=== PATIENT | male | born 1985 | race Caucasian/White ===

== ENCOUNTER 2022-08-23 09:34 | Outpatient (CLI) | payer SELFPAY | END 2022-08-23 09:35 | disposition home or self-care (01) | PROVIDERS: Visit Provider Registered Nurse | DX: Z31.69 Encounter for other general counseling and advice on procreation (principal); Z31.41 Encounter for fertility testing | CPT/HCPCS: 89310; 89398 ==

== ENCOUNTER 2024-03-17 11:28 | Inpatient (IN) | payer BC, SELFPAY ==
[2024-03-17] VITALS (16 sets, daily range): BP systolic 110–153; BP diastolic 80–100; PULSE 67–82; RESP 16; TEMP 36.8–37.6; O2SAT 98–100
--- NOTE | 2024-03-17 11:52 | ED_ITS ---
HPI - General Adult General Date Seen: 03/17/24 Chief complaint: Abdominal Pain Stated complaint: stomach pain Time Seen by Provider: 03/17/24 11:40 History of Present Illness HPI narrative: This is a 38-year-old generally healthy male referred to the ER this morning from clinic for evaluation of acute appendicitis. History from the patient his is that he has been sick since Saturday. He has had a generalized abdominal pain, intermittent fevers that were low-grade, mild anorexia since yesterday. He has not had anything to eat since yesterday. This morning, while in clinic, he vomited once, but now feels better. He had a low- grade fever yesterday but no fever this morning. No clear trigger for his pain. Nothing makes it better or worse. It seems to be fairly generalized 1st but he received Toradol in clinic and now it is mostly in his right lower quadrant. He is otherwise healthy. No long-term medical conditions. He takes no medications. No allergies. Nonsmoker. History from the clinic is that he has had pain for 2 days. He had a white count of 17. He had a CT scan that showed acute appendicitis with severe findings but no evidence for rupture or free fluid or perforation. He is being sent directly from the radiology suite to the ER so that we can arrange surgical consultation. Related Data Home Medications Medication Instructions Recorded Confirmed fexofenadine 180 mg tablet 180 mg PO QDAY PRN 06/21/23 07/18/23 (Allergy Relief (fexofenadine)) cholecalciferol (vitamin D3) PO DAILY 03/17/24 03/17/24 Allergies Allergy/AdvReac Type Severity Reaction Status Date / Time No Known Drug Allergies Allergy Verified 03/17/24 10:08 [facility] Medical History (Updated 03/17/24 @ 11:52 by Arnoldo Shankar MD) Abdominal pain ?R10.9 - Unspecified abdominal pain (ICD-10) Surgical History (Updated 06/21/23 @ 14:21 by Wanda Gaston MD) Hx of LASIK ?Z98.890 - Other specified postprocedural states (ICD-10) Social History Little interest or pleasure in doing things: not at all Feeling down, depressed, or hopeless: not at all Exam Narrative: Exam Narrative: Constitutional: Appears well-developed and well-nourished. Alert. Conversant. Non toxic. HENT: Head: Atraumatic. Nose: Nose normal. Mouth/Throat: Oral mucosa is clear and moist. no trismus. Pharynx normal. Mallampati category 3. Tonsils symmetric. No tonsillar enlargement, erythema, or exudate. Eyes: Conjunctivae normal. EOM normal. Pupils equal, round, and reactive to light. No scleral icterus. Neck: Normal range of motion. Neck supple. No tracheal deviation present. Cardiovascular: Normal rate, regular rhythm. No gallop. No friction rub. No murmur heard. Symmetric radial artery pulses Pulmonary/Chest: Effort normal. No stridor. No respiratory distress. No wheezes. No rales. No rhonchi . No tenderness. Abdominal: Soft. Bowel sounds normal. No distension. No mass. Right lower quadrant> suprapubic tenderness. No rebound. No guarding. No CVA tenderness Musculoskeletal: RUE: Normal range of motion. No tenderness. No deformity LUE: Normal range of motion. No tenderness. No deformity RLE: Normal range of motion. No edema. No tenderness. No deformity LLE: Normal range of motion. No edema. No tenderness. No deformity Neurological: Alert and oriented to person, place, and time. Normal strength. CN II-VII intact. No sensory deficit. GCS eye subscore is 4. GCS verbal subscore is 5. GCS motor subscore is 6. Normal coordination Skin: Skin is warm and dry. No rash noted. No pallor. Normal capillary refill. Psychiatric: Normal mood. Normal affect. Const: Vital Signs, click to edit/add: Vital Signs - 24 hr 03/17/24 11:33 Temperature 98.2 F Pulse Rate [Pulse Oximeter] 82 Respiratory Rate 16 Blood Pressure [Le ft Upper Arm] 110/80 Pulse Oximetry 100 Oxygen Delivery Me thod Room Air Course Course ED Course: Discussed by phone with surgery, Dr. Monzon. She will come to the ER to evaluate this patient. Based on logistics he will likely have to wait until later this afternoon before appendectomy. She requests that we do maintenance IV fluids and IV antibiotics-ordered. I reviewed the patient's labs and CT findings from clinic. He does have a white count of 17. CBC otherwise fine. CMP is pending. I contacted the lab. Turns out that the analyzer machine for comprehensive metabolic profiles is inactive this morning therefore that analysis will be delayed. Discussed with the lab. I will order a basic metabolic profile which can be obtained quickly before the patient goes to the OR. They will cancel the CMP, since it will not be back in a clinically meaningful time frame. Awaiting BMP, Overall low suspicion for any renal disease. Vital Signs Vital signs: Initial Vital Signs Temperature 98.2 F 03/17/24 11:33 Temperature Source Temporal Artery Scan 03/17/24 11:33 Pulse Rate 82 03/17/24 11:33 Respiratory Rate 16 03/17/24 11:33 Blood Pressure 110/80 03/17/24 11:33 Blood Pressure Mean 90 03/17/24 11:33 Blood Pressure Position Sitting 03/17/24 11:33 Pulse Oximetry 100 03/17/24 11:33 Oxygen Delivery Method Room Air 03/17/24 11:33 Vital Signs Temperature 98.2 F 03/17/24 11:33 Pulse Rate 82 03/17/24 11:33 Respiratory Rate 16 03/17/24 11:33 Blood Pressure 110/80 03/17/24 11:33 Pulse Oximetry 100 03/17/24 11:33 Oxygen Delivery Method Room Air 03/17/24 11:33 Temperature 98.2 F 03/17/24 11:33 Pulse Rate 82 03/17/24 11:33 Respiratory Rate 16 03/17/24 11:33 Blood Pressure 110/80 03/17/24 11:33 Pulse Oximetry 100 03/17/24 11:33 Oxygen Delivery Method Room Air 03/17/24 11:33 Medical Decision Making [facility] Narrative Medical decision making narrative: The patient is referred from clinic with 2 days of abdominal/ right lower quadrant abdominal pain. Workup, including CT scan obtained through clinic, confirms appendicitis. There is no evidence of rupture or abscess at this time. Pain has been controlled with Toradol given in the clinic. Discussed with surgery who requests that we start IV fluids and antibiotics here in the ER. Parenteral antibiotics have been ordered in the Emergency Department. The case was discussed with the contract programmer surgeon and the patient will be going to the operating room later this afternoon. Discharge Plan Discharge Clinical Impression: Acute appendicitis Prescriptions: No Action fexofenadine [Allergy Relief (fexofenadine)] 180 mg tablet 180 mg PO QDAY PRN cholecalciferol (vitamin D3) PO DAILY Follow Up/Referrals: Wanda Gaston MD [Primary Care Provider] -
[2024-03-17 12:09] LABS: Blood Urea Nitrogen POC* 10 mg/dl (8-26); Carbon Dioxide Point of Care* 19 mmol/L (20-32); Chloride Point of Care* 97 mmol/L (98-109); Creatinine Point of Care* 0.9 mg/dl (0.6-1.3); Glucose IStat Point of Care 110 mg/dl (60-115); Potassium Point of Care* 4.1 mmol/L (3.5-4.9); Sodium Point of Care* 132 mmol/L (138-146)
[2024-03-17] MEDS: PIPERACILLIN/TAZOBACTAM 4.5 GM in 0.9 % SODIUM CHLORIDE Mini-bag 100 ML IVPB (12:09)
--- NOTE | 2024-03-17 12:53 | P.GSHP_ITS ---
History of Present Illness History of Present Illness Date Seen: 03/17/24 Chief complaint: stomach pain Narrative: Iker Washington is a 38 year old male who presented to urgent care with complaints of a stomach ache since Saturday. He states that he has had pain like this before, as a child. The pain was slightly different this time because it persisted and is now in the right lower quadrant. Does report some associated nausea and emesis. No change in bowel movements. He has never had abdominal surgery before. 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 Review of Systems Status of ROS: Reports: 10 or more systems reviewed and unremarkable except as noted in History and below [facility] Medical History (Updated 03/17/24 @ 11:52 by Arnoldo Shankar MD) Abdominal pain ?R10.9 - Unspecified abdominal pain (ICD-10) Surgical History (Updated 06/21/23 @ 14:21 by Wanda Gaston MD) Hx of LASIK ?Z98.890 - Other specified postprocedural states (ICD-10) Social History Smoking Status: Never smoker How often do you have a drink containing alcohol: 2-3 times a week How many standard drinks containing alcohol do you have on a typical day: 1 or 2 How often do you have six or more drinks on one occasion: Never AUDIT-C Alcohol total score: 3 Non-prescribed substance use: marijuana (any form) Little interest or pleasure in doing things: not at all Feeling down, depressed, or hopeless: not at all Meds Home Medications and Allergies Home Medications Medication Instructions Recorded Confirmed Type fexofenadine 180 mg tablet 180 mg PO QDAY PRN 06/21/23 07/18/23 History (Allergy Relief (fexofenadine)) cholecalciferol (vitamin D3) PO DAILY 03/17/24 03/17/24 History Allergies Allergy/AdvReac Type Severity Reaction Status Date / Time No Known Drug Allergies Allergy Verified 03/17/24 10:08 Exam Narrative: Exam Narrative: General: Alert and oriented, no acute distress Respiratory: Equal breath rise bilaterally, maintained on room air CV: Well perfused Abdomen: Tender to palpation right lower quadrant with some guarding and rebound. Soft. No previous surgical incisions. Const: Vital Signs, click to edit/add: Vital Signs - 24 hr 03/17/24 11:33 Temperature 98.2 F Pulse Rate [Pulse Oximeter] 82 Respiratory Rate 16 Blood Pressure [Le ft Upper Arm] 110/80 Pulse Oximetry 100 Oxygen Delivery Me thod Room Air Results Results Labs: Leukocytosis (17) Abdomen CT scan report/results: report reviewed and image reviewed Progress Note:A&P Assessment and plan (1) Acute appendicitis: Status: Acute Plan The patient presented with a history, exam and imaging findings consistent with acute appendicitis. I discussed the treatment options with the patient including non-surgical and s urgical options. I recommended laparoscopic appendectomy. The risks of surgery were reviewed with the patient including the risks of bleeding, post-operative wound or intra-abdominal infection, injury to abdominal structures and possible conversion to an open operation. We also discussed anesthetic complications including CO, stroke, respiratory failure and blood clots. The patient voiced an understanding of our conversation, had the opportunity to ask questions, agreed to accept the risks of surgery and asked that we proceed with surgery. -OR for laparoscopic appendectomy
[2024-03-17] MEDS: LACTATED RINGERS 1000 ML IV (12:59)
[2024-03-17] MEDS: BUPIVACAINE 0.25% 30 ML 20 ML INJECTION (13:28)
[2024-03-17] MEDS: LACTATED RINGERS 1000 ML 1,000 ML 100 ML IV (13:35)
--- NOTE | 2024-03-17 13:51 | SUR.OPER ---
PATIENT QUESTIONS ANSWERED SATISFACTORILY PREOPERATIVELY. PATIENT BROUGHT TO OR #3 PER CART. Patient positioned supine on OR #3 bed. The perioperative team supported arms bilaterally on arm boards. Final approval of positioning by surgeon.
--- NOTE | 2024-03-17 14:18 | W.ANESCHARGE ---
Anesthesia Charges Start Date/Time Anesthesia Start Date: 03/17/24 Anesthesia Start Time: 13:06 Stop Date/Time Anesthesia Stop Date: 03/17/24 Anesthesia Stop Time: 15:54 Summary Extremes of Age - Over 70 or under 1: MDA
--- NOTE | 2024-03-17 14:20 | SUR.OPER ---
, KHALIDA, UPDATED BY PHONE CALL @ 14:20 BY MILTON SINGH RN
--- NOTE | 2024-03-17 15:56 | P.ANES_ITS ---
Anesthesia Charges Start Date/Time Anesthesia Start Date: 03/17/24 Anesthesia Start Time: 13:06 Stop Date/Time Anesthesia Stop Date: 03/17/24 Anesthesia Stop Time: 15:54 Summary Emergency: [employer]
[2024-03-17] MEDS: HYDROmorphone 0.5 mg/0.5 ml inj IVP ×4 (16:58→23:24)
[2024-03-17] MEDS: PIPERACILLIN/TAZOBACTAM 3.375 GM in 0.9 % SODIUM CHLORIDE Mini-bag 100 ML IVPB (18:53)
[2024-03-17] MEDS: ACETAMINOPHEN 325 MG TABLET 650 MG PO (19:56)
[2024-03-18] VITALS (7 sets, daily range): BP systolic 107–122; BP diastolic 60–79; PULSE 55–80; RESP 16–18; TEMP 36.7–37.3; O2SAT 98–100
[2024-03-18] MEDS: HYDROCODONE-ACETAMIN 5-325 MG 1 TAB PO ×4 (00:07→19:04)
[2024-03-18] MEDS: PIPERACILLIN/TAZOBACTAM 3.375 GM in 0.9 % SODIUM CHLORIDE Mini-bag 100 ML IVPB ×5 (00:09→23:54)
[2024-03-18] MEDS: LACTATED RINGERS 1000 ML 1,000 ML 100 ML IV ×3 (00:19→22:11)
--- NOTE | 2024-03-18 00:19 | PC.NURSE ---
End of shift [id number] - Pt alert, oriented, cooperative. Up independently in room. Pt reported pain as 2/10, indicated tolerating pain with medications from JAN. PRASHANTH drain observed to be patent and draining. Tolerating RA, NPO diet. Family at bedside. Pt able to void during shift.
[2024-03-18] MEDS: HYDROmorphone 0.5 mg/0.5 ml inj IVP (04:39)
[2024-03-18 07:13] LABS: Basophils Percent Auto 0.1 % (0.0-3.0); Hematocrit 40.9 % (37.0-53.0); Hemoglobin* 13.6 gm/dL (13.5-17.5); Immature Granulocytes Pct Auto 0.2 %; Lymphocytes Percent Auto 6.2 % (20-44); Mean Corpuscular HGB Conc 33 gm/dL (32-36); Mean Corpuscular Hemoglobin 31 pg (26-34); Mean Corpuscular Volume 93 fL (80-100); Monocytes Percent Auto 10.4 % (0.0-11.0); Neutrophils Percent Auto 83.1 % (42.0-72.0); Platelet Count* 203 K/uL (140-440); RDW Coefficient of Variation % 12.3 % (11.5-15.5); Red Blood Count 4.38 m/uL (4.30-5.90); White Blood Count* 16.32 K/uL (4.50-11.00)
[2024-03-18 07:19] LABS: Slide Review Reflex No
--- NOTE | 2024-03-18 07:58 | PC.NURSE ---
Pt is alert and oriented x3. Afebrile. Pt reports 3/10 pain in abdomen, pain managed with PRN medications and cold pack. Pt has 2 laps sites that have scant dried blood on them and intact. Pt has one PRASHANTH drain that drained 50 ml overnight. Pt is Ind in room, tolerating a NPO diet with sips and chips allowed. Pt slept intermittently throughout night. ?
--- NOTE | 2024-03-18 10:26 | P.GSOP_ITS ---
Operative Note Date of procedure: 03/17/24 Pre-op diagnosis: Acute appendicitis Post-op diagnosis: Acute appendicitis, perforated with spillage of stool Type of Procedure: Laparoscopic appendectomy Indications: Patient is a 38-year-old male who presented to the emergency department with clinical history workup consistent for appendicitis. CT scan imaging was obtained and demonstrated a severe appendicitis with a significant amount of inflammation. Risks and benefits of operative intervention were discussed at length with the patient. Risks included but was not limited to: Bleeding, infection, risk of damage to surrounding structures, possible need for additional procedures, possible need to convert to an open operation and post operative complications such as pneumonia, pulmonary emboli or AR. All questions and concerns were addressed with the patient agreeing to proceed. Procedure Description: After discussing the risks and benefits of the procedure, the patient signed informed consent.? The operative site was marked and the patient was brought to the operating room and placed on the operating table in supine position.? Care was taken to pad the patient's pressure points.?? The patient was then intubated by anesthesia.?? The operative site was then prepped and draped in the usual sterile fashion.? A time-out was then performed. Entrance to the abdomen was obtained via a 5 mm optical trocar in the left upper quadrant. The abdomen was insufflated and briefly surveyed for any signs of injury. There were none. A 12 mm port was placed lateral to the umbilicus as well as a 5 mm port in the left lower quadrant under direct vision. The patient was then placed in Trendelenburg position with the right side up. Evidence of omental adhesions within the right lower quadrant to the anterior abdominal wall. These were taken down carefully with hook cautery. After removing these adhesions there was evidence of purulence within the right pericolic gutter. The cecum was edematous and inflamed. It was also densely adherent to the lateral abdominal wall. Blunt dissection was necessary to gently break up the inflammatory adhesions. Posterior to the cecum was an abscess cavity. When entered there was evidence of stool spillage and 2 large stool balls. Contami nation was identified as coming from an area of perforation near the base of the appendix. The body of the appendix was followed laterally and the tip identified, densely adherent to the lateral abdominal wall. This was dissected free with hook cautery and blunt dissection. The tip of the appendix was then able to be grasped and pulled into view. A mesenteric window was created between the base of the appendix and the mesoappendix. This was transected with a 45 mm Endo-DAYANA vascular load stapler. The staple line was examined for bleeding. A small pinpoint area of arterial bleeding was controlled with a single 5 mm clip. The perforation was visualized again at the base of the appendix. The cecum was further mobilized towards midline with hook cautery and blunt dissection. A 60 mm Endo-DAYANA purple load stapler was then used to transect just below the perforation at the base of the appendix, including a small portion of cecum. The staple line was inspected and appeared intact. The tissue involving the staple line and that portion of the cecum did appear inflamed, edematous and with some involved inflammatory rind. Due to the quality of the tissue the decision was made to oversew the staple line. This was performed laparoscopically with 2 interrupted Lembert stitches via the Endo Stitch. This allowed for complete coverage of the staple line. The appendix and 2 stool balls were then removed from the abdomen using an Endo-Catch bag. The area was irrigated with saline. The specimen was sent to pathology. Using the left lower quadrant 5 mm port a 15 [place]ian PRASHANTH drain was placed in the left lower quadrant. The 12 mm port site fascia was closed with 0 Vicryl via the Ian-Robert. The skin was then closed with absorbable subcuticular suture. Sterile dressings were then applied. Instrument sponge and needle counts were correct at the end of the case. The patient was then woken and transported to the PACU in stable condition. Findings: Acute appendicitis with perforation near the base and spillage of stool. Right lower quadrant 15 [place]uvian PRASHANTH drain placed Anesthesia: GETA Surgeon: Marlene Paulino MD Estimated blood loss (mL): 30 Specimen: Appendix Condition: stable Disposition: PACU
--- NOTE | 2024-03-18 10:38 | PM.GSPN ---
Subjective Subjective Date Seen: 03/18/24 Interval history: Patient is doing well this morning. His pain is currently controlled with the pain medicines. He has passed gas a few times. No bowel movement yet. He has been tolerating ice chips and water without difficulty. Denies any nausea or vomiting. No fevers overnight. No other concerns. Exam Narrative: Exam Narrative: General: Alert and oriented, no acute distress Respiratory: Equal breath rise bilaterally, maintained on room air CV: Well perfused Abdomen: Soft, tender to palpation over incision sites. Some tenderness with deep palpation right lower quadrant without guarding or rebound. Drain in place with minimal serosanguineous output. Const: Vital Signs, click to edit/add: Vital Signs - 24 hr 03/17/24 11:33 03/17/24 15:49 03/17/24 15:55 Temperature 98.2 F 99.2 F Pulse Rate 80 77 Pulse Rate [Pulse Oximeter] 82 Pulse Rate [Right Pulse Oximeter] Respiratory Rate 16 16 16 Blood Pressure 124/89 140/95 H Blood Pressure [Le ft Arm] Blood Pressure [Le ft Upper Arm] 110/80 Pulse Oximetry 100 100 99 Oxygen Delivery [facility] Room Air Room Air Room Air 03/17/24 16:00 03/17/24 16:05 03/17/24 16:10 Temperature Pulse Rate 78 76 74 Pulse Rate [Pulse Oximeter] Pulse Rate [Right Pulse Oximeter] Respiratory Rate 16 16 16 Blood Pressure 128/92 H 141/92 H 136/94 H Blood Pressure [Le ft Arm] Blood Pressure [Le ft Upper Arm] Pulse Oximetry 99 98 98 Oxygen Delivery [facility] Room Air Room Air Room Air 03/17/24 16:15 03/17/24 16:20 03/17/24 16:30 Temperature 98.4 F Pulse Rate 73 71 74 Pulse Rate [Pulse Oximeter] Pulse Rate [Right Pulse Oximeter] Respiratory Rate 16 16 16 Blood Pressure 137/93 H 149/98 H 144/94 H Blood Pressure [Le ft Arm] Blood Pressure [Le ft Upper Arm] Pulse Oximetry 99 99 99 Oxygen Delivery [facility] Room Air Room Air Room Air 03/17/24 16:45 03/17/24 17:00 03/17/24 17:15 Temperature 98.8 F Pulse Rate 67 72 70 Pulse Rate [Pulse Oximeter] Pulse Rate [Right Pulse Oximeter] Respiratory Rate 16 16 16 Blood Pressure 145/90 H 145/100 H 152/100 H Blood Pressure [Le ft Arm] Blood Pressure [Le ft Upper Arm] Pulse Oximetry 99 98 99 Oxygen Delivery Me thod Room Air Room Air Room Air 03/17/24 17:30 03/17/24 18:00 03/17/24 18:30 Temperature 99.2 F 99.6 F Pulse Rate 70 72 Pulse Rate [Pulse Oximeter] Pulse Rate [Right Pulse Oximeter] Respiratory Rate 16 16 16 Blood Pressure 152/100 H 153/97 H 146/87 H Blood Pressure [Le ft Arm] Blood Pressure [Le ft Upper Arm] Pulse Oximetry 98 99 99 Oxygen Delivery Ut thod Room Air Room Air Room Air 03/17/24 19:30 03/18/24 00:14 03/18/24 04:32 Temperature 99.6 F 98.2 F 98.0 F Pulse Rate 76 Pulse Rate [Pulse Oximeter] Pulse Rate [Right Pulse Oximeter] 68 60 Respiratory Rate 16 16 16 Blood Pressure 144/90 H Blood Pressure [Le ft Arm] 107/60 108/70 Blood Pressure [Le ft Upper Arm] Pulse Oximetry 98 98 Oxygen Delivery [facility] Room Air Room Air Room Air Labs/Imaging Labs Labs: WBC 16.3 this morning. Imaging Imaging: No new imaging. Progress Note:A&P Assessment and plan (1) Acute appendicitis: Status: Acute Plan Patient is postop day 1 laparoscopic appendectomy for acute appendicitis with perforation and contamination of stool. Vital signs stable and afebrile overnight. He does continue on IV antibiotics. Leukocytosis is still elevated but trending down (17.8--16.3). He has tolerated sips and ice chips without difficulty. Passing gas with no reported nausea. -clear liquids this morning. Will be slow but advancement of diet. Patient is at risk for postoperative ileus. -continue IV Zosyn -trend fever and WBC curve -encourage ambulation -SCDs and Lovenox for DVT prophylaxis, to start tonight.
--- NOTE | 2024-03-18 15:58 | PC.NURSE ---
End of Shift: Patient pleasant and cooperative, A&O. VSS, afebrile, SpO2 maintained above 90% on RA. Patient has been rating pain less than 5/10 on surgical site, managed with PRN medication, see MAR. Tolerating clear liquid diet, message to Dr. Paulino to advance to fulls per morning discussion.
[2024-03-18] MEDS: ENOXAPARIN 40 MG/0.4 ML INJ SUBCUT (19:03)
--- NOTE | 2024-03-18 22:46 | PC.NURSE ---
Patient alert and oriented x4. VSS. Patient advanced to a full liquid diet. Tolerated english yogurt well. Independent with walking and use of toilet. Patient walked the halls this afternoon. Pain level has been 3/10. States pain is from gas in abdomen and tender at incision site. at bedside this evening.
[2024-03-19] MEDS: HYDROCODONE-ACETAMIN 5-325 MG 1 TAB PO ×3 (01:17→12:43)
[2024-03-19 03:00] VITALS: BP 104/62; PULSE 56; RESP 16; TEMP 37.1; O2SAT 97
[2024-03-19] MEDS: PIPERACILLIN/TAZOBACTAM 3.375 GM in 0.9 % SODIUM CHLORIDE Mini-bag 100 ML IVPB ×2 (05:52→11:50)
[2024-03-19 06:42] LABS: Basophils Percent Auto 0.2 % (0.0-3.0); Eosinophils Percent Auto 0.2 % (0.0-7.0); Hematocrit 38.5 % (37.0-53.0); Hemoglobin* 12.8 gm/dL (13.5-17.5); Immature Granulocytes Pct Auto 0.2 %; Lymphocytes Percent Auto 18.4 % (20-44); Mean Corpuscular HGB Conc 33 gm/dL (32-36); Mean Corpuscular Hemoglobin 31 pg (26-34); Mean Corpuscular Volume 94 fL (80-100); Monocytes Percent Auto 10.7 % (0.0-11.0); Neutrophils Percent Auto 70.3 % (42.0-72.0); Platelet Count* 191 K/uL (140-440); RDW Coefficient of Variation % 12.3 % (11.5-15.5); Red Blood Count 4.09 m/uL (4.30-5.90); White Blood Count* 13.78 K/uL (4.50-11.00)
[2024-03-19 06:44] LABS: Slide Review Reflex No
[2024-03-19 07:00] VITALS: BP 109/71; PULSE 53; RESP 16; TEMP 36.9; O2SAT 98
--- NOTE | 2024-03-19 07:46 | PC.NURSE ---
23-07: pleasant and cooperative. rating pain 0-2/10 in abd, active ice on, see eMAR. pt experiences increased pain when stripping the PRASHANTH drain, does well with reminders to breathe. pt reports gas pains, pt walking halls indep. lap sites intact. 25mL Serosanguineous PRASHANTH output this shift.
[2024-03-19] MEDS: LACTATED RINGERS 1000 ML 1,000 ML 100 ML IV (10:02)
[2024-03-19 11:00] VITALS: BP 126/85; PULSE 48; RESP 16; TEMP 37.4; O2SAT 100
--- NOTE | 2024-03-19 13:41 | PM.DS1 ---
DS: Providers Provider Date Seen: 03/19/24 Date of admission: 03/17/24 17:11 Primary care physician: Wanda Gaston MD Admitting Clinician: Stanton Elmore MD Attending Physician on discharge: Marlene Paulino MD DS: Summary Hospital Course Hospital Course: Patient presented to the emergency department with evidence of severe appendicitis. Taken to the operating room for laparoscopic appendectomy. There was evidence intraoperatively of perforation with stool contamination in abscess cavity. A right lower quadrant drain was left in place. Patient did have slow advancement of diet. The drain was removed on postop day 2 with minimal serous drainage recorded. He continued on IV antibiotics while inpatient. At the time of discharge he had greater than 24 hours of being afebrile with down trending WBC ( 17-- 16--13). Patient was discharged to home once he was tolerating a regular diet, ambulating without difficulty and pain was well controlled. He was discharged with 8 days of Augmentin, to complete a 10 day course of antibiotics. Will plan for follow-up in 2 weeks. Time Spent with Patient Time attestation: Total time spent providing and/or coordinating discharge services: Exam Narrative: Exam Narrative: General: Alert and oriented, no acute distress respiratory: Equal breath rise bilaterally, maintained on room air CV: Well perfused abdomen: Soft, appropriately tender over incision sites. Steri-Strips in place clean/dry /intact Const: Vital Signs, click to edit/add: Vital Signs - 24 hr 03/18/24 15:00 03/18/24 15:00 03/18/24 19:00 Temperature 99.1 F 99.2 F Pulse Rate [Right Pulse Oximeter] 61 61 55 L Respiratory Rate 16 16 16 Blood Pressure [Le ft Arm] 113/74 122/77 Pulse Oximetry 100 99 Oxygen Delivery Me thod Room Air Room Air 03/18/24 23:00 03/18/24 23:00 03/19/24 03:00 Temperature 98.7 F 98.7 F Pulse Rate [Right Pulse Oximeter] 68 56 L Respiratory Rate 16 16 16 Blood Pressure [Le ft Arm] 107/60 104/62 Pulse Oximetry 99 97 Oxygen Delivery Me thod Room Air Room Air 03/19/24 07:00 03/19/24 07:00 03/19/24 11:00 Temperature 98.5 F 99.4 F Pulse Rate [Right Pulse Oximeter] 53 L 53 L 48 L Respiratory Rate 16 16 16 Blood Pressure [Le ft Arm] 109/71 126/85 Pulse Oximetry 98 100 Oxygen Delivery Me thod Room Air Room Air DS: Data Data Completed and Pending Labs on day of discharge: Labs from last 24 hours 03/19/24 06:18 WBC 13.78 H RBC 4.09 L Hgb 12.8 L Hct 38.5 MCV 94 MCH 31 MCHC 33 RDW Coeff of Sruthi 12.3 Plt Count 191 Neut % (Auto) 70.3 Lymph % (Auto) 18.4 L [place] % (Auto) 10.7 Eos % (Auto) 0.2 Baso % (Auto) 0.2 Neut # (Auto) 9.70 H Lymph # (Auto) 2.50 [place] # (Auto) 1.50 H Eos # (Auto) 0.00 Baso # (Auto) 0.00 Abs Immat Gran (auto) 0.00 Imm/Tot Granulo (auto) 0.2 Discharge Plan Discharge Disposition: Home, Self-Care Date of Admission: 03/17/24 17:11 Attending Provider on Discharge: Marlene Paulino Primary Care Provider: Wanda Gaston Condition: Improved Anticipated Discharge Date/Time: 03/19/24 18:00 Discharge Medications: New hydrocodone-acetaminophen 5-325 mg tablet 1 tab PO Q6H PRN (Reason: pain) Qty: 15 0RF amoxicillin-pot clavulanate 875-125 mg tablet 1 tab PO BID 8 Days Qty: 16 0RF senna 8.6 mg capsule 8.6 mg PO DAILY PRN (Reason: constipation) Qty: 90 0RF Continued fexofenadine [Allergy Relief (fexofenadine)] 180 mg tablet 180 mg PO DAILY PRN cholecalciferol (vitamin D3) 25 mcg (1,000 unit) capsule 25 mcg PO DAILY Discharge Orders: Discharge Order (Routine); Ordered 03/19/24 Ordered By: Marlene Paulino Patient Education: Post-Operative Instructions: Appendectomy Additional Instructions: You were prescribed a narcotic pain medication. In addition you may supplement with Tylenol and/or ibuprofen. Be sure to not exceed greater than 4 g of Tylenol in a 24 hour period. While on narcotic pain medicine please take stool softeners. A prescription of stool softeners has been sent to the pharmacy. Stop if having greater than 2 stools per day. You have Steri-Strips dressings in place, allowed these to fall off on in their own. Okay to shower. Do not soak in a bathtub per go swimming for 2 weeks. Follow-up with Dr. Paulino in 2-3 weeks. Please call if you are experiencing severe pain, nausea, vomiting, difficulty urinating, fever or not had a bowel movement in 4 days after surgery. Activity Level: No strenuous activity Activity Detail: Activity as tolerated. Avoid strenuous activity. No lifting greater than 20 lb for 2 weeks. Discharge Diet: Regular Follow Up Appointments: Wanda Gaston MD [Primary Care Provider] - Forms: [facility] Info Instructions
[2024-03-19 15:00] VITALS: PULSE 56; RESP 16; O2SAT 100
--- NOTE | 2024-03-19 15:29 | PC.NURSE ---
Nursing discharge note: Pt is A&O, afebrile and VSS on day of discharge. Pt does not have any pain while at rest but c/o pain at 2-4/10 with activity. Pt is independent in his room and does frequent walking in the hallway. Pt reports passing gas but no BM yet. Lap sites x3 intact with steri strips and minimal dried bloody drainage. PRASHANTH drain in LUQ intact with no drainage today- Dr. Paulino pulled drain this afternoon prior to D/C. Pt has been receiving PRN Clio for pain with adequate relief- last given @ 1245. PIV in right AC was discontinued, catheter intact. Pt tolerated diet advancement with no N/V or increase in abd pain. Pt discharged home accompanied by his via W/C at 1530. ?
== END 2024-03-19 15:31 | disposition home or self-care (01) | DRG 225 ==
LOC: ED 12:27 → OR 13:00 → MEDSURG 16:35 → OR 17:11 → MEDSURG 17:11
PROVIDERS: Surgery; Admitting Provider Surgery; Emergency Provider Emergency Medicine; PCP Family Medicine; Visit Provider Surgery
PROC: 0DTJ4ZZ Resection of Appendix, Percutaneous Endoscopic Approach (ICD-10-PCS; CPT 44970; principal; 2024-03-17 13:00)
DX: K35.33 Acute appendicitis with perforation, localized peritonitis, and gangrene, with abscess (principal); K66.0 Peritoneal adhesions (postprocedural) (postinfection)
CPT/HCPCS: 00840; 36415; 74177; 80048; 80053; 83690; 85025; 86140; 87086; 88304; 99100; 99140; 99283; 99284; 99285; A9270; J0330; J0665; J1100; J1170; J1630; J1650; J2250; J2405; J2543; J2704; J3010; J7120; Q9967

== ENCOUNTER 2024-03-25 10:52 | Outpatient (CLI) | payer BC, SELFPAY | END 2024-03-25 10:53 | disposition home or self-care (01) | LOC: NFLDREF 03-26 05:18 | PROVIDERS: PCP Family Medicine; Referring Provider Family Medicine; Visit Provider Surgery | DX: R10.9 Unspecified abdominal pain (principal); R11.0 Nausea; Z90.49 Acquired absence of other specified parts of digestive tract | CPT/HCPCS: 80048; 86140 ==

== ENCOUNTER 2024-03-25 15:02 | Observation (INO) | payer BC, SELFPAY ==
[2024-03-25 11:04] LABS: Basophils Percent Auto 0.3 % (0.0-3.0); Eosinophils Percent Auto 0.8 % (0.0-7.0); Hematocrit 44.6 % (37.0-53.0); Hemoglobin* 15.1 gm/dL (13.5-17.5); Lymphocytes Percent Auto 21.1 % (20-44); Mean Corpuscular HGB Conc 34 gm/dL (32-36); Mean Corpuscular Hemoglobin 31 pg (26-34); Mean Corpuscular Volume 91 fL (80-100); Monocytes Percent Auto 13.1 % (0.0-11.0); Neutrophils Percent Auto 64.7 % (42.0-72.0); Platelet Count* 406 K/uL (140-440); Red Blood Count 4.91 m/uL (4.30-5.90); White Blood Count* 12.07 K/uL (4.50-11.00)
[2024-03-25 11:05] LABS: Slide Review Reflex Yes
--- NOTE | 2024-03-25 13:00 | CT_ITS ---
Patient: MILVIA RADER Facility:?[facility] Patient ID:?[id number] Site Patient ID:?[id number]. Site :?1985 Study:?CT-Abdomen/Pelvis W/ 80CC [id number]/15/2024 12:57:12 PM Ordering Physician:Sigrid Lock Final Report: INDICATION: s/p appendectomy with abdominal symptoms. eval for abscess TECHNIQUE: CT abdomen and pelvis acquired with 80 cc Isovue 370 IV contrast. COMPARISON: 03/17/2024. FINDINGS: Lower chest: Unremarkable. Liver: Unremarkable. Normal in size and attenuation. No suspicious masses. Gallbladder and bile ducts: Unremarkable. No stones or inflammation. No biliary dilatation. Pancreas: Unremarkable. No mass or inflammation. Spleen: Unremarkable. Normal in size. No masses. Adrenal glands: Unremarkable. No nodules. Kidneys: Unremarkable. No suspicious masses, stones, or hydronephrosis. GI tract: Status post appendectomy. No bowel obstruction. Vasculature: Abdominal aorta is normal in caliber. Mesenteric arteries are patent. Lymph nodes: No lymphadenopathy. Peritoneum/Abdominal Wall: Bi lobulated fluid collections adjacent to the sutures at the base of the cecum at the site of appendectomy. The collections measures 5.2 x 2.3 cm in total diameters. Minimal subtle surrounding enhancement. No free air or significant free fluid. Foci of air dissecting along the left abdominal wall fascia, may be related to recent surgical intervention. Pelvis: Incomplete distension of the bladder. Bones: Unremarkable for age. IMPRESSION: 1. Bi-lobulated fluid collection at the site of appendectomy, adjacent to the sutures at the base of the cecum, concerning for developing abscess. Please note that all CT scans at this facility use dose modulation, iterative reconstruction, and/or weight-based dosing when appropriate to reduce radiation dose to as low as reasonably achievable. Dictated by Rocio Rivera MD @ 03/25/2024 1:34:57 PM Signed by:?Rocio Rivera MD @03/25/2024 1:34:57 PM (Electronic Signature)
[2024-03-25 13:02] LABS: Slide Review Acceptable Review (Acceptable)
[2024-03-25 14:00] LABS: Chloride* 98 mmol/L (96-114)
[2024-03-25 14:01] LABS: Potassium* 4.4 mmol/L (3.6-5.1); Sodium* 133 mmol/L (135-149)
[2024-03-25 14:03] LABS: Creatinine* 0.9 mg/dL (0.5-1.5); Estimated Glomerular Filt Rate 113 ml/min
[2024-03-25 14:04] LABS: Anion Gap 12 mEq/L (7-15); Blood Urea Nitrogen* 15 mg/dL (5-24); Carbon Dioxide* 23 mmol/L (20-32); Glucose* 96 mg/dL (60-115)
[2024-03-25 14:07] LABS: C Reactive Protein* 1.2 mg/dL (0.5-1.0)
--- NOTE | 2024-03-25 15:21 | P.GSHP_ITS ---
History of Present Illness History of Present Illness Date Seen: 03/25/24 Chief complaint: Z90.49 - Acquired absence of other specified parts Narrative: Milvia Washingtno is a 38 year old male who presented to General surgery Clinic today with nausea 1 week after undergoing laparoscopic appendectomy for perforated appendicitis. He had not had been having fevers, had not been taking pain medication, and had been having bowel movements, however, starting 2 days ago he began having nausea. This progressively got worse and he was also vomiting. For this reason he came in to be seen. He underwent laparoscopic appendectomy on 05/30/2024. He was found to have perforation with fecal contamination. He was kept in the hospital for 2 days on IV antibiotics and with a drain. The drain was pulled on postop day 2 and he was discharged home on oral antibiotics. Workup in clinic showed a white blood cell count of 12, mildly elevated CRP and a CT scan which showed a bilobed abscess. Discussion was had with Interventional Radiology you do not feel that there was a target for drainage. He was therefore admitted for IV antibiotics and antiemetics. [facility] Medical History (Updated 03/25/24 @ 16:17 by Ursula Lock MD) Abdominal pain ?R10.9 - Unspecified abdominal pain (ICD-10) Surgical History (Updated 03/25/24 @ 10:28 by Ursula Lock MD) Hx of LASIK ?Z98.890 - Other specified postprocedural states (ICD-10) Social History Smoking Status: Never smoker How often do you have a drink containing alcohol: 2-3 times a week How many standard drinks containing alcohol do you have on a typical day: 1 or 2 How often do you have six or more drinks on one occasion: Never AUDIT-C Alcohol total score: 3 Non-prescribed substance use: marijuana (any form) Little interest or pleasure in doing things: not at all Feeling down, depressed, or hopeless: not at all Meds Home Medications and Allergies Home Medications Medication Instructions Recorded Confirmed Type fexofenadine 180 mg tablet 180 mg PO DAILY PRN 06/21/23 03/25/24 History (Allergy Relief (fexofenadine)) cholecalciferol (vitamin D3) 25 25 mcg PO DAILY 03/18/24 03/25/24 History mcg (1,000 unit) capsule Allergies Allergy/AdvReac Type Severity Reaction Status Date / Time No Known Drug Allergies Allergy Verified 03/17/24 10:08 Exam Narrative: Exam Narrative: General: No acute distress CV: Regular rate and rhythm Respiratory: breathing non-labored on room air. Abdomen: Soft, patient does have guarding but denies pain. Incisions are clean and dry without erythema. Results Results Labs: White blood cell count in clinic was 12.9 which is down slightly from discharge. CRP was 1.2. Sodium mildly low at 133. Remainder of labs were normal. Abdomen CT scan report/results: report reviewed and image reviewed Additional studies: Patient: MILVIA [place] Facility:?[facility] Patient ID:?[id number] Site Patient ID:?[id number]. Site :?1985 Study:?CT-Abdomen/Pelvis W/ 80CC [id number]/15/2024 12:57:12 PM Ordering Physician:?Ursula Lock Final Report: INDICATION: s/p appendectomy with abdominal symptoms. eval for abscess TECHNIQUE: CT abdomen and pelvis acquired with 80 cc Isovue 370 IV contrast. COMPARISON: 03/17/2024. FINDINGS: Lower chest: Unremarkable. Liver: Unremarkable. Normal in size and attenuation. No suspicious masses. Gallbladder and bile ducts: Unremarkable. No stones or inflammation. No biliary dilatation. Pancreas: Unremarkable. No mass or inflammation. Spleen: Unremarkable. Normal in size. No masses. Adrenal glands: Unremarkable. No nodules. Kidneys: Unremarkable. No suspicious masses, stones, or hydronephrosis. GI tract: Status post appendectomy. No bowel obstruction. Vasculature: Abdominal aorta is normal in caliber. Mesenteric arteries are patent. Lymph nodes: No lymphadenopathy. Peritoneum/Abdominal Wall: Bi lobulated fluid collections adjacent to the sutures at the base of the cecum at the site of appendectomy. The collections measures 5.2 x 2.3 cm in total diameters. Minimal subtle surrounding enhancement. No free air or significant free fluid. Foci of air dissecting along the left abdominal wall fascia, may be related to recent surgical intervention. Pelvis: Incomplete distension of the bladder. Bones: Unremarkable for age. IMPRESSION: 1. Bi-lobulated fluid collection at the site of appendectomy, adjacent to the sutures at the base of the cecum, concerning for developing abscess. Progress Note:A&P Assessment and plan (1) Appendiceal mucinous cystadenoma: Status: Acute (2) S/P laparoscopic appendectomy: Status: Acute (3) Post-operative wound abscess: Status: Acute Plan The patient is a 38-year-old male who is 1 week status post laparoscopic appendectomy for perforated appendicitis. 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 He presented to clinic with nausea. He is found to have a small abscess. At this time iron does not feel that it is amenable to drainage. Admission to the hospital for IV antibiotics and antiemetics. Discussed with the patient and his that we will continue IV antibiotics likely as an outpatient as well. If he improves clinically and is able to eat and drink without nausea then he may discharge home as long as he is improving. He could come back for outpatient antibiotics depending on his hospital course. He may need to stay for a few days. Regarding his appendiceal neoplasm we will refer him to [facility] to see if there is any other intervention that is necessary. -clear liquid diet -Lovenox for DVT prophylaxis -or Zosyn for intra-abdominal abscess -repeat labs in a.m.
[2024-03-25 16:58] VITALS: BP 162/84; PULSE 56; RESP 16; O2SAT 100; BMI 22.7
[2024-03-25] MEDS: 0.9 % SODIUM CHLORIDE 1000 ml 1,000 ML 125 ML IV (16:59)
[2024-03-25] MEDS: PIPERACILLIN/TAZOBACTAM 3.375 GM in 0.9 % SODIUM CHLORIDE Mini-bag 100 ML IVPB ×2 (17:00→21:53)
[2024-03-25 17:04] VITALS: BP 162/84; PULSE 56; RESP 16; O2SAT 100
[2024-03-25] MEDS: ONDANSETRON 2 MG/ML inj IVP ×2 (17:12→22:03)
[2024-03-25 21:00] VITALS: BP 150/76; PULSE 62; RESP 16; O2SAT 100
[2024-03-25] MEDS: ENOXAPARIN 40 MG/0.4 ML INJ SUBCUT (21:53)
[2024-03-25 23:00] VITALS: BP 117/78; PULSE 56; RESP 16; TEMP 37.4; O2SAT 96
[2024-03-26] MEDS: ONDANSETRON 2 MG/ML inj IVP ×4 (01:58→18:22)
[2024-03-26] MEDS: 0.9 % SODIUM CHLORIDE 1000 ml 1,000 ML 125 ML IV ×3 (01:58→20:30)
[2024-03-26 03:00] VITALS: BP 119/78; PULSE 51; RESP 16; TEMP 37; O2SAT 99
[2024-03-26] MEDS: PIPERACILLIN/TAZOBACTAM 3.375 GM in 0.9 % SODIUM CHLORIDE Mini-bag 100 ML IVPB ×2 (04:21→09:57)
[2024-03-26 06:22] LABS: Basophils Absolute Auto 0.06 K/uL (0.00-0.30); Basophils Percent Auto 0.6 % (0.0-3.0); Eosinophils Absolute Auto 0.08 K/uL (0.00-0.50); Eosinophils Percent Auto 0.7 % (0.0-7.0); Hematocrit 40.8 % (37.0-53.0); Hemoglobin* 14.1 gm/dL (13.5-17.5); Immature Granulocytes Abs Auto 0.25 K/uL (0.00-0.30); Immature Granulocytes Pct Auto 2.3 %; Lymphocytes Percent Auto 19.5 % (20-44); Mean Corpuscular HGB Conc 35 gm/dL (32-36); Mean Corpuscular Hemoglobin 31 pg (26-34); Mean Corpuscular Volume 90 fL (80-100); Monocytes Percent Auto 11.5 % (0.0-11.0); Neutrophils Absolute Auto 7.02 K/uL (1.7-7.0); Neutrophils Percent Auto 65.4 % (42.0-72.0); Platelet Count* 384 K/uL (140-440); Red Blood Count 4.54 m/uL (4.30-5.90); White Blood Count* 10.75 K/uL (4.50-11.00)
[2024-03-26 06:27] LABS: Slide Review Reflex No
[2024-03-26 06:33] LABS: Chloride* 102 mmol/L (96-114); Potassium* 4.2 mmol/L (3.6-5.1); Sodium* 134 mmol/L (135-149)
[2024-03-26 06:35] LABS: Creatinine* 0.8 mg/dL (0.5-1.5); Est. Creatinine Clearance* 131.97; Estimated Glomerular Filt Rate 117 ml/min
[2024-03-26 06:36] LABS: Anion Gap 9 mEq/L (7-15); Blood Urea Nitrogen* 12 mg/dL (5-24); Calcium* 9.3 mg/dL (8.4-10.6); Carbon Dioxide* 23 mmol/L (20-32); Glucose* 100 mg/dL (60-115)
--- NOTE | 2024-03-26 06:46 | PC.NURSE ---
End of shift note: Pt alert & oriented x 4 and able to make needs known. Surgical incisions to abdomen noted to be WARM IN with steri strips in place with scant amount of dried bloody drainage observed upon inspection. Pt continent of bladder and up independently in room. He remains on NS at 125 mL/hr per order with IV to L AC patent. He received one dose of PRN Zofran IVP this shift due to c/o nausea. Pt has had no vomiting noted or reported when asked. He remains on CL diet. VSS and pt has been afebrile. Pt has been denying pain when asked.
[2024-03-26 07:00] VITALS: BP 134/92; PULSE 60; RESP 16; TEMP 36.7; O2SAT 100
[2024-03-26 11:00] VITALS: BP 148/97; PULSE 55; RESP 20; TEMP 36.7; O2SAT 100
[2024-03-26 15:00] VITALS: BP 128/87; PULSE 64; RESP 18; TEMP 37.5; O2SAT 100
[2024-03-26] MEDS: ERTAPENEM 1 GM in 0.9 % SODIUM CHLORIDE Mini-bag 100 ML IVPB (15:35)
--- NOTE | 2024-03-26 16:14 | PM.GSPN ---
Subjective Subjective Date Seen: 03/26/24 Interval history: Patient is doing okay this morning. He did have some nausea earlier in the day, helped with Zofran. He has been tolerating a clear liquid diet. Denies any abdominal pain. No fevers overnight. An update from nursing was given that patient had an episode of emesis with eating. He also now has a low-grade temperature of 99.5?. Vital signs are otherwise within normal limits. Still no complaints of pain. Exam Const: Vital Signs, click to edit/add: Vital Signs - 24 hr 03/25/24 16:58 03/25/24 16:58 03/25/24 17:04 Temperature Pulse Rate [Pulse Oximeter] 56 L 56 L Respiratory Rate 16 16 16 Blood Pressure [Le ft Arm] 162/84 H 162/84 H Pulse Oximetry 100 100 100 Oxygen Delivery Me thod Room Air Room Air Room Air 03/25/24 21:00 03/25/24 23:00 03/25/24 23:00 Temperature 99.4 F Pulse Rate [Pulse Oximeter] 62 56 L 56 L Respiratory Rate 16 16 16 Blood Pressure [Le ft Arm] 150/76 H 117/78 Pulse Oximetry 100 96 Oxygen Delivery Me thod Room Air Room Air 03/26/24 03:00 03/26/24 07:00 03/26/24 07:00 Temperature 98.6 F 98.1 F Pulse Rate [Pulse Oximeter] 51 L 60 60 Respiratory Rate 16 16 16 Blood Pressure [Le ft Arm] 119/78 134/92 H Pulse Oximetry 99 100 Oxygen Delivery Me thod Room Air Room Air 03/26/24 11:00 03/26/24 15:00 Temperature 98.1 F 99.5 F Pulse Rate [Pulse Oximeter] 55 L 64 Respiratory Rate 20 18 Blood Pressure [Le ft Arm] 148/97 H 128/87 Pulse Oximetry 100 100 Oxygen Delivery Me thod Room Air Room Air Labs/Imaging Labs Labs: WBC 10 Imaging Imaging: No new imaging Progress Note:A&P Assessment and plan (1) Post-operative wound abscess: Status: Acute Plan Patient with evidence of postoperative abscess following a perforated appendicitis. Fluid collection is not able to be drained by Interventional Radiology given location. He continues on IV antibiotics. A PICC line was placed earlier today in anticipation of IV antibiotic need at the time of discharge. With patient having continued low-grade temperatures and inability to tolerate p.o. intake recommend that he stay in patient. -will keep diet clear liquids, Zofran p.r.n. -trend fever and WBC curve, will repeat labs in the morning -continue IV antibiotics. Patient was transition to IV ertapenem -PICC line in place -encourage ambulation -SCDs for DVT prophylaxis
[2024-03-26] MEDS: OMEPRAZOLE 20 MG CAPSULE DR PO (17:37)
--- NOTE | 2024-03-26 19:21 | PC.NURSE ---
End of Shift: Patient pleasant and cooperative, A&O. VSS, at 1500 vitals, patient had a temperature of 99.5, MD notified. Midline placed today in left arm. Patient has been nauseas throughout the day, given meds, see MAR. Patient did vomit x1. Clear liquid diet. Independent.
[2024-03-26 19:43] VITALS: BP 127/97; PULSE 58; RESP 18; TEMP 37.5; O2SAT 99
[2024-03-26] MEDS: ENOXAPARIN 40 MG/0.4 ML INJ SUBCUT (20:46)
[2024-03-26] MEDS: LORazepam 2 MG/ML inj 0.5 MG IVP (20:46)
[2024-03-26 23:00] VITALS: PULSE 56; RESP 15; TEMP 37.4; O2SAT 96
[2024-03-27 03:00] VITALS: BP 140/92; PULSE 79; RESP 16; TEMP 37.3; O2SAT 94
[2024-03-27] MEDS: LORazepam 2 MG/ML inj 0.5 MG IVP (03:25)
[2024-03-27] MEDS: 0.9 % SODIUM CHLORIDE 1000 ml 1,000 ML 125 ML IV (03:25)
--- NOTE | 2024-03-27 06:25 | PC.NURSE ---
Addendum entered and electronically signed by Kim Delatorre RN 03/27/24 06:53: Fur Dry Cleaner entered patient room at 0630 and patient reported he had an emesis. 150cc emesis that is green in color noted in emesis bag in patient's garbage. Denies any nausea at this time. Original Note: End of shift report [id number]: Pleasant and cooperative with cares. Nausea and restlessness reported, symptoms well managed with PRN lorazepam. Denies vomiting. Midline dressing intact and line patent with NS running at 125/hr. IV to right AC causing patient discomfort, line discontinued with catheter tip intact.
[2024-03-27] MEDS: OMEPRAZOLE 20 MG CAPSULE DR PO (06:35)
[2024-03-27 07:00] VITALS: BP 129/94; PULSE 83; RESP 16; TEMP 37.3; O2SAT 100
[2024-03-27 07:12] LABS: Basophils Percent Auto 0.6 % (0.0-3.0); Eosinophils Percent Auto 0.7 % (0.0-7.0); Hematocrit 42.8 % (37.0-53.0); Hemoglobin* 14.7 gm/dL (13.5-17.5); Immature Granulocytes Pct Auto 1.2 %; Mean Corpuscular HGB Conc 34 gm/dL (32-36); Mean Corpuscular Hemoglobin 31 pg (26-34); Mean Corpuscular Volume 91 fL (80-100); Monocytes Percent Auto 8.1 % (0.0-11.0); Neutrophils Percent Auto 67.4 % (42.0-72.0); Platelet Count* 453 K/uL (140-440); RDW Coefficient of Variation % 11.8 % (11.5-15.5); Red Blood Count 4.71 m/uL (4.30-5.90)
[2024-03-27 07:29] LABS: Slide Review Reflex No
--- NOTE | 2024-03-27 08:49 | CT_ITS ---
Patient: MILVIA RADER Facility:?[facility] Patient ID:?[id number] Site Patient ID:?[id number]. Site :?1985 Study:?CT-Abdomen/Pelvis W/ 80CC [id number]/17/2024 9:19:34 AM Ordering Physician:Lion Final Report: INDICATION: Fever. Nausea. History of appendectomy with a collection noted at the operative bed on a recent examination. COMPARISON: March 25, 2024 TECHNIQUE: CT examination of the abdomen and pelvis was performed following the uneventful intravenous administration of 80 cc of Isovue 370. Thin section axial images were obtained from the lung bases through the pubic symphysis. Oral contrast was not administered. Please note that all CT scans at this facility use dose modulation, iterative reconstruction, and/or weight-based dosing when appropriate to reduce radiation dose to as low as reasonably achievable. FINDINGS: LUNG BASES: The lung bases as visualized appear normal.The heart size is normal at the lung bases. LIVER/BILIARY SYSTEM:The liver is normal in size and configuration. There is no focal mass and there is no intra- or extra hepatic biliary ductal dilatation.Possible layering sludge or small stones within the gallbladder. No wall thickening or pericholecystic fluid ADRENALS: Normal KIDNEYS, URETERS and BLADDER:The kidneys appear normal. No visible mass, calculus or hydronephrosis. The ureters and bladder as visualized appear normal. SPLEEN:Normal appearance. PANCREAS: Appears normal. RETROPERITONEUM and MESENTERY: There is no mass, adenopathy or aortic aneurysm. GASTROINTESTINAL SYSTEM: There has been an appendectomy. There is inflammatory change in the right lower quadrant. There is also a bilobed fluid collection immediately adjacent to the sutures associated with the appendectomy operative site. Statistically, this most likely represents an abscess though a hematoma or seroma is possible. This is best seen on axial image number 88, coronal image 46 and sagittal image 102. Based on axial image 88, this measures about 4.8 x 1.8 centimeters. The collection may be minimally smaller than on the prior study. No new collection. No free air. PELVIS: No mass, adenopathy or free fluid. OSSEOUS STRUCTURES and ABDOMINAL WALL: There is an age-appropriate appearance of the osseous structures.No significant abdominal wall defect. OTHER: No free fluid or free air. IMPRESSION: 1. Persistent pericecal collection at the operative site of an appendectomy. This measures 4.8 x 1.8 centimeters and is minimally smaller than previously. 2. No new or worsening finding. Please note that all CT scans at this facility use dose modulation, iterative reconstruction, and/or weight-based dosing when appropriate to reduce radiation dose to as low as reasonably achievable. Dictated by Oracio De La Rosa MD @ 03/27/2024 9:29:52 AM Signed by:?Oracio De La Rosa MD @03/27/2024 9:29:52 AM (Electronic Signature
--- NOTE | 2024-03-27 09:52 | PM.GSPN ---
Subjective Subjective Date Seen: 03/27/24 Interval history: Patient does feel ?better than yesterday?. He did have an episode of emesis this morning. He has since tolerated a popsicle. No current reported nausea. Denies any abdominal pain. Continues to pass gas. Was able to walk the halls twice this morning. Exam Narrative: Exam Narrative: General: Alert and oriented, no acute distress. Abdomen: Soft, nontender to palpation. Steri-Strips dressings over incisions, bandage in left lower quadrant. Const: Vital Signs, click to edit/add: Vital Signs - 24 hr 03/26/24 11:00 03/26/24 15:00 03/26/24 15:00 Temperature 98.1 F 99.5 F Pulse Rate [Pulse Oximeter] 55 L 64 64 Respiratory Rate 20 18 18 Blood Pressure [Le ft Arm] 148/97 H 128/87 Pulse Oximetry 100 100 Oxygen Delivery Me thod Room Air Room Air 03/26/24 19:43 03/26/24 23:00 03/26/24 23:00 Temperature 99.5 F 99.3 F Pulse Rate [Pulse Oximeter] 58 L 56 L 56 L Respiratory Rate 18 15 15 Blood Pressure [Le ft Arm] 127/97 H Pulse Oximetry 99 96 Oxygen Delivery Me thod Room Air Room Air 03/27/24 03:00 Temperature 99.2 F Pulse Rate [Pulse Oximeter] 79 Respiratory Rate 16 Blood Pressure [Le ft Arm] 140/92 H Pulse Oximetry 94 Oxygen Delivery Me thod Room Air Labs/Imaging Labs Labs: WBC 13, CRP pending Imaging Imaging: CT abdomen/pelvis: Bilobed abscess and right lower quadrant is measuring slightly smaller. No evidence of increase in size today. The fluid is still not amendable to IR drainage. Progress Note:A&P Assessment and plan (1) Post-operative wound abscess: Status: Acute Plan Patient with evidence of postoperative abscess following a perforated appendicitis. Fluid collection is not able to be drained by Interventional Radiology given location. A PICC line was placed yesterday and patient was transitioned to ertapenem. He continues to have intermittent nausea and emesis. His WBC is slightly increased today at 13. CRP is still pending. Vital signs stable overnight. His temperature has been mildly elevated around 99. I discussed with the patient the rationale for repeat CT imaging. Given his increasing inflammatory markers and low-grade fevers additional imaging would assess any increase in size of the abscess cavity. It would also re-evaluate whether the fluid is in a different position and possibly now amendable to drainage. CT imaging was obtained. The abscess cavity is measuring smaller in appearance. No evidence of increase in size. It is still not amenable to drainage given the location. Will continue the course of IV antibiotics. Anticipate patient will be staying today was slow advancement of diet and possible discharge this evening versus tomorrow. -clear liquids this morning, slow advancement of diet as tolerated, Zofran and Ativan p.r.n. for nausea -trend fever curve -continue IV ertapenem. Patient will continue this as an outpatient once discharged for a total 10 day course. -PICC line in place -encourage ambulation -SCDs for DVT prophylaxis
--- NOTE | 2024-03-27 11:10 | PM.DS1 ---
DS: Providers Provider Date Seen: 03/27/24 Date of admission: 03/25/24 15:02 Primary care physician: Wanda Gaston MD Admitting Clinician: Ursula Lock MD Attending Physician on discharge: Ursula Lock MD DS: Summary Hospital Course Hospital Course: Patient underwent a laparoscopic appendectomy for perforated appendicitis on 03/17/2024. During the initial operation a drain was left in place and patient was admitted for IV antibiotics. On postop day 2 the drain was able to be removed and he was transition to oral antibiotics. He was discharged from the hospital on 03/19/2024. He presented to clinic on 03/25/2024 with complaints of nausea and vomiting. A CT scan was obtained at that time with evidence of a right lower quadrant postoperative abscess. He was admitted to the hospital for IV antibiotics. Given the location of the abscess this was not amenable to IR drainage. While in the hospital patient continued to have IV antibiotics, as well as a placement of a PICC line for anticipated 10 day IV antibiotic course. A repeat CT scan was done on 03/27/2024 with evidence of resolving right lower quadrant abscess. At the time of discharge the patient was tolerating a regular diet, pain was well controlled, he remained afebrile and was ambulating without difficulty. Will plan for patient to follow up in [facility] on 04/01/[address] Lock. Time Spent with Patient Time attestation: Total time spent providing and/or coordinating discharge services: Exam Narrative: Exam Narrative: Please see exam from same date. Const: Vital Signs, click to edit/add: Vital Signs - 24 hr 03/26/24 15:00 03/26/24 15:00 03/26/24 19:43 Temperature 99.5 F 99.5 F Pulse Rate [Pulse Oximeter] 64 64 58 L Respiratory Rate 18 18 18 Blood Pressure [Le ft Arm] 128/87 127/97 H Pulse Oximetry 100 99 Oxygen Delivery Me thod Room Air Room Air 03/26/24 23:00 03/26/24 23:00 03/27/24 03:00 Temperature 99.3 F 99.2 F Pulse Rate [Pulse Oximeter] 56 L 56 L 79 Respiratory Rate 15 15 16 Blood Pressure [Le ft Arm] 140/92 H Pulse Oximetry 96 94 Oxygen Delivery Me thod Room Air Room Air DS: Data Data Completed and Pending Labs on day of discharge: Labs from last 24 hours 03/27/24 07:00 WBC 13.50 H RBC 4.71 Hgb 14.7 Hct 42.8 MCV 91 MCH 31 MCHC 34 RDW Coeff of Sruthi 11.8 Plt Count 453 H Neut % (Auto) 67.4 Lymph % (Auto) 22.0 [place] % (Auto) 8.1 Eos % (Auto) 0.7 Baso % (Auto) 0.6 Neut # (Auto) 9.10 H Lymph # (Auto) 3.00 H [place] # (Auto) 1.10 H Eos # (Auto) 0.10 Baso # (Auto) 0.10 Abs Immat Gran (auto) 0.20 Imm/Tot Granulo (auto) 1.2 C-React Prot High Sens Pending Discharge Plan Discharge Disposition: Home, Self-Care Date of Admission: 03/25/24 15:02 Attending Provider on Discharge: Marlene Paulino Primary Care Provider: Wanda Gaston Condition: Improved Anticipated Discharge Date/Time: 03/27/24 18:00 Discharge Medications: New lorazepam [Ativan] 0.5 mg tablet 0.5 mg PO TID PRNQty: 10 0RF Continued fexofenadine [Allergy Relief (fexofenadine)] 180 mg tablet 180 mg PO DAILY PRN ondansetron 4 mg tablet,disintegrating 4 mg PO Q6H PRN (Reason: nausea and vomiting) Qty: 20 0RF cholecalciferol (vitamin D3) 25 mcg (1,000 unit) capsule 25 mcg PO DAILY hydrocodone-acetaminophen 5-325 mg tablet 1 tab PO Q6H PRN (Reason: pain) Qty: 15 0RF amoxicillin-pot clavulanate 875-125 mg tablet 1 tab PO BID 8 Days Qty: 16 0RF senna 8.6 mg capsule 8.6 mg PO DAILY PRN (Reason: constipation) Qty: 90 0RF Discharge Orders: Discharge Order (Routine); Ordered 03/27/24 Ordered By: Marlene Paulino Patient Education: Lorazepam (By mouth), Appendicitis (GEN) Additional Instructions: You have been prescribed IV antibiotics as an outpatient. This is administered once a day at [facility]. Please keep your PICC IV line clean and intact. Follow-up with Dr. Lock at [facility]. Please call if you are experiencing severe pain, nausea, vomiting, difficulty urinating, fever or not had a bowel movement in 4 days. Activity Level: No strenuous activity Discharge Diet: Regular Follow Up Appointments: Ursula Lock MD [Staff Physician] - 04/01/24 10:00 am (Follow up at [facility] on Sunday 04/[address] Lock) Wanda Gaston MD [Primary Care Provider] - Forms: [employer] Info Instructions
[2024-03-27] MEDS: ERTAPENEM 1 GM in 0.9 % SODIUM CHLORIDE Mini-bag 100 ML IVPB (15:14)
[2024-03-27 16:24] VITALS: BP 116/77; PULSE 62; RESP 16; TEMP 37.4; O2SAT 98
--- NOTE | 2024-03-27 18:46 | PC.NURSE ---
Discharge - Pt alert, oriented, cooperative. Up independently in room. Denies pain, nausea, vomiting. Pt tolerating advance of diet from clear liquids without increased pain or nausea. Discharge education given to pt and spouse with understanding verbalized. Pt discharged to home with spouse via wheelchair at approximately 1810.
[2024-03-29 10:11] LABS: CRP, High Sensitivity 5.1 mg/L (<=3.0)
== END 2024-03-27 18:10 | disposition home or self-care (01) ==
LOC: MEDSURG 15:02
PROVIDERS: Surgery; Admitting Provider Surgery; PCP Family Medicine; Visit Provider Surgery
DX: R10.9 Unspecified abdominal pain (principal); R11.0 Nausea; Z90.49 Acquired absence of other specified parts of digestive tract; D12.1 Benign neoplasm of appendix; T81.49XA Infection following a procedure, other surgical site, initial encounter
CPT/HCPCS: 36410; 36415; 74177; 80048; 85025; 86140; 86141; 96361; 96365; 96366; 96372; 96375; 96376; A9270; G0378; G0379; J1335; J1650; J2060; J2405; J2543; J7030; Q9967

== ENCOUNTER 2024-04-03 10:18 | Outpatient (CLI) | payer BC, SELFPAY ==
--- NOTE | 2024-04-03 10:30 | CRLHL7_ITS ---
For Patients: As a result of the Century Cures Act, medical imaging exams and procedure reports are released immediately into your electronic medical record. You may view this report before your referring provider. If you have questions, please contact your health care provider. INDICATION: Peritoneal abscess. TECHNIQUE: CT abdomen and pelvis acquired with 80 cc Isovue 370 IV contrast. COMPARISON: CT scan of the abdomen and pelvis 03/27/2024. FINDINGS: Lower chest: Unremarkable. Liver: Unremarkable. Normal in size and attenuation. No suspicious masses. Gallbladder and bile ducts: Unremarkable. No stones or inflammation. No biliary dilatation. Pancreas: Unremarkable. No mass or inflammation. Spleen: Unremarkable. Normal in size. No masses. Adrenal glands: Unremarkable. No nodules. Kidneys, ureters and urinary bladder: Unremarkable. No suspicious masses, stones, or hydronephrosis. Unremarkable urinary bladder. GI tract: Unremarkable. Normal in caliber. No sign of mass or inflammation. Status post appendectomy. The pericecal low-density collection seen on the previous exam has resolved. There is minimal residual stranding of the pericecal fat. Vasculature: Abdominal aorta is normal in caliber. Mesenteric arteries are patent. Lymph nodes: No lymphadenopathy. Peritoneum: No free intraperitoneal fluid or free air. No new abdominopelvic abscess or mass. Abdominal Wall: No abdominal wall mass or hernia. Pelvis: Normal prostate. Bones: Unremarkable for age. IMPRESSION: Status post appendectomy with interval resolution of previously seen pericecal low-density collection and minimal residual pericecal fat stranding. Please note that all CT scans at this facility use dose modulation, iterative reconstruction, and/or weight-based dosing when appropriate to reduce radiation dose to as low as reasonably achievable. Dictated by Everett Jauregui MD @ 04/03/2024 12:32:16 PM (Electronically Signed)
== END 2024-04-03 10:19 | disposition home or self-care (01) ==
PROVIDERS: PCP Family Medicine; Visit Provider Surgery
DX: K65.1 Peritoneal abscess (principal); Z90.49 Acquired absence of other specified parts of digestive tract
CPT/HCPCS: 74177; Q9967

== ENCOUNTER 2024-04-08 13:30 | Outpatient (RCR) | payer BC, SELFPAY ==
[2024-03-28] MEDS: ERTAPENEM 1 GM in 0.9 % SODIUM CHLORIDE Mini-bag 100 ML IVPB (15:11)
[2024-03-29 15:01] VITALS: BP 121/85; PULSE 63; RESP 18; TEMP 37.3; O2SAT 100
[2024-03-29] MEDS: ERTAPENEM 1 GM in 0.9 % SODIUM CHLORIDE Mini-bag 100 ML IVPB (15:02)
--- NOTE | 2024-03-29 15:46 | PC.NURSE ---
Pt arrived for antibiotics. PIIC line patent; flushed with normal saline. VSS. Dressing intact.
[2024-03-30] MEDS: ERTAPENEM 1 GM in 0.9 % SODIUM CHLORIDE Mini-bag 100 ML IVPB (15:15)
[2024-03-30 15:18] VITALS: BP 108/70; PULSE 59; RESP 18; TEMP 36.3; O2SAT 100
[2024-03-31] MEDS: 0.9 % SODIUM CHLORIDE 250 ml IV (13:50)
[2024-03-31] MEDS: ERTAPENEM 1 GM in 0.9 % SODIUM CHLORIDE Mini-bag 100 ML IVPB (13:50)
[2024-03-31] MEDS: SODIUM CHLORIDE 0.9 % (FLUSH) 10 ML SYRINGE IVF ×2 (13:50→14:35)
--- NOTE | 2024-03-31 14:19 | PC.NURSE ---
Pt present at [facility] today for abx. Pt asked for clarification about length of his treatment as he was under the impression he needed treatment until Saturday (10 days), however, our orders say [address] Paulino and asked that this question get answered at [facility] surgical f/u with Dr. Lock tomorrow morning. Pt will come to [facility] for day 7 of Ertapenem at 1:30 tomorrow. He will let us know the plan. RN also asked pt to have MD send paper orders for midline removal when appropriate.
[2024-04-01 13:35] VITALS: BP 113/78; PULSE 77; RESP 16; TEMP 36.6; O2SAT 99
[2024-04-01] MEDS: 0.9 % SODIUM CHLORIDE 250 ml IV (13:46)
[2024-04-01] MEDS: ERTAPENEM 1 GM in 0.9 % SODIUM CHLORIDE Mini-bag 100 ML IVPB (13:46)
[2024-04-01] MEDS: SODIUM CHLORIDE 0.9 % (FLUSH) 10 ML SYRINGE IVF ×2 (13:46→14:23)
[2024-04-01 13:54] LABS: Basophils Percent Auto 0.6 % (0.0-3.0); Eosinophils Percent Auto 1.6 % (0.0-7.0); Hematocrit 42.3 % (37.0-53.0); Hemoglobin* 14.2 gm/dL (13.5-17.5); Immature Granulocytes Pct Auto 0.4 %; Lymphocytes Percent Auto 21.7 % (20-44); Mean Corpuscular HGB Conc 34 gm/dL (32-36); Mean Corpuscular Hemoglobin 31 pg (26-34); Mean Corpuscular Volume 92 fL (80-100); Monocytes Percent Auto 4.7 % (0.0-11.0); Platelet Count* 468 K/uL (140-440); RDW Coefficient of Variation % 12.3 % (11.5-15.5); White Blood Count* 13.29 K/uL (4.50-11.00)
[2024-04-01 14:14] LABS: C Reactive Protein* < 0.5 mg/dL (0.5-1.0)
[2024-04-01 14:18] LABS: Slide Review Reflex Yes
[2024-04-01 14:22] LABS: Slide Review Acceptable Review (Acceptable)
[2024-04-02 14:01] VITALS: BP 101/69; PULSE 75; RESP 16; TEMP 37; O2SAT 97
[2024-04-02] MEDS: 0.9 % SODIUM CHLORIDE 250 ml IV (14:03)
[2024-04-02] MEDS: ERTAPENEM 1 GM in 0.9 % SODIUM CHLORIDE Mini-bag 100 ML IVPB (14:03)
[2024-04-02] MEDS: SODIUM CHLORIDE 0.9 % (FLUSH) 10 ML SYRINGE IVF (14:03)
[2024-04-03] MEDS: ERTAPENEM 1 GM in 0.9 % SODIUM CHLORIDE Mini-bag 100 ML IVPB (11:31)
[2024-04-03] MEDS: 0.9 % SODIUM CHLORIDE 250 ml IV (11:31)
[2024-04-03] MEDS: SODIUM CHLORIDE 0.9 % (FLUSH) 10 ML SYRINGE IVF (11:31)
[2024-04-03 11:53] VITALS: BP 122/79; PULSE 63; RESP 16; TEMP 36.4
[2024-04-04 13:40] VITALS: BP 106/72; PULSE 72; RESP 16; TEMP 36.6; O2SAT 98
[2024-04-04] MEDS: SODIUM CHLORIDE 0.9 % (FLUSH) 10 ML SYRINGE IVF (13:41)
[2024-04-04] MEDS: ERTAPENEM 1 GM in 0.9 % SODIUM CHLORIDE Mini-bag 100 ML IVPB (13:41)
[2024-04-04] MEDS: 0.9 % SODIUM CHLORIDE 250 ml IV (13:41)
[2024-04-05] MEDS: ERTAPENEM 1 GM in 0.9 % SODIUM CHLORIDE Mini-bag 100 ML IVPB (13:19)
[2024-04-06 13:49] VITALS: BP 107/74; PULSE 77; RESP 16; TEMP 36.8; O2SAT 100
[2024-04-06] MEDS: ERTAPENEM 1 GM in 0.9 % SODIUM CHLORIDE Mini-bag 100 ML IVPB (13:51)
--- NOTE | 2024-04-06 15:31 | PC.NURSE ---
The patient arrived to the medical surgical unit for out pt abx infusion, ADOLFO midline dressing is CDI and patent. VSS upon arrival. Iv abx infused.... flushed with 10cc prior to infusion and 10 cc following the infusion. Renae AMIN BSN
[2024-04-07 13:36] VITALS: BP 112/76; PULSE 65; RESP 18; TEMP 37; O2SAT 99
[2024-04-07] MEDS: SODIUM CHLORIDE 0.9 % (FLUSH) 10 ML SYRINGE IVF (13:59)
[2024-04-07] MEDS: ERTAPENEM 1 GM in 0.9 % SODIUM CHLORIDE Mini-bag 100 ML IVPB (13:59)
[2024-04-07] MEDS: 0.9 % SODIUM CHLORIDE 250 ml IV (13:59)
[2024-04-08 13:30] VITALS: BP 118/79; PULSE 71; RESP 16; TEMP 36.4; O2SAT 100
[2024-04-08] MEDS: ERTAPENEM 1 GM in 0.9 % SODIUM CHLORIDE Mini-bag 100 ML IVPB (13:51)
[2024-04-08] MEDS: SODIUM CHLORIDE 0.9 % (FLUSH) 10 ML SYRINGE IVF (13:51)
[2024-04-08 14:04] LABS: Basophils Absolute Auto 0.07 K/uL (0.00-0.30); Basophils Percent Auto 0.8 % (0.0-3.0); Eosinophils Absolute Auto 0.34 K/uL (0.00-0.50); Eosinophils Percent Auto 3.8 % (0.0-7.0); Hematocrit 41.3 % (37.0-53.0); Hemoglobin* 13.9 gm/dL (13.5-17.5); Immature Granulocytes Abs Auto 0.02 K/uL (0.00-0.30); Immature Granulocytes Pct Auto 0.2 %; Lymphocytes Absolute Auto 2.85 K/uL (0.90-2.90); Lymphocytes Percent Auto 31.9 % (20-44); Mean Corpuscular HGB Conc 34 gm/dL (32-36); Mean Corpuscular Hemoglobin 31 pg (26-34); Mean Corpuscular Volume 91 fL (80-100); Monocytes Percent Auto 6.4 % (0.0-11.0); Neutrophils Absolute Auto 5.08 K/uL (1.7-7.0); Neutrophils Percent Auto 56.9 % (42.0-72.0); Platelet Count* 310 K/uL (140-440); RDW Coefficient of Variation % 12.1 % (11.5-15.5); Red Blood Count 4.52 m/uL (4.30-5.90); White Blood Count* 8.93 K/uL (4.50-11.00)
[2024-04-08 14:08] LABS: Slide Review Reflex No
== END 2024-09-24 23:59 | disposition home or self-care (01) ==
LOC: CCIC 13:30
PROVIDERS: PCP Family Medicine; Referring Provider Family Medicine; Visit Provider Physician Assistant
DX: K65.1 Peritoneal abscess; T81.42XA Infection following a procedure, deep incisional surgical site, initial encounter
CPT/HCPCS: 36415; 36589; 85025; 86140; 96365; 99211; G0463; A4221; J1335; J7050

== ENCOUNTER 2025-10-27 15:05 | Outpatient (CLI) | payer BC, SELFPAY | END 2025-10-27 15:06 | disposition home or self-care (01) | PROVIDERS: PCP Family Medicine; Visit Provider Family Medicine | DX: Z00.00 Encounter for general adult medical examination without abnormal findings (principal); Z11.59 Encounter for screening for other viral diseases | CPT/HCPCS: 80053; 80061; 86803 ==